=== PATIENT | male | born 1995 | race African-American/Black ===

== ENCOUNTER 2022-08-09 16:45 | Emergency (ER) | payer OTHER ==
[~2022-08-09] VITALS: Ht 170.2 cm; Wt 87.0 kg
[2022-08-09] MEDS ORDERED: IBUPROFEN 600MG TABLET PO ONE (23:00)
[2022-08-09] MEDS ORDERED: TETANUS, DIPHTHERIA, PERTUSSIS VAC/PF 0.5ML (>10YR OLD) IM ONE (23:00)
[2022-08-09] MEDS ORDERED: BO1 TP (23:23)
[2022-08-09] MEDS ORDERED: IBUP-2029 MT (23:23)
[2022-08-09] MEDS ORDERED: BACITRACIN ZINC OINT UDPKT TOP ONE (23:30)
[2022-08-09 23:55] VITALS: BP 144/80
== END 2022-08-09 23:55 | disposition home or self-care (01) ==
LOC: ER 16:45
DX: S60.031A Contusion of right middle finger without damage to nail, initial encounter (principal); X58.XXXA Exposure to other specified factors, initial encounter; Y93.89 Activity, other specified; Y92.89 Other specified places as the place of occurrence of the external cause; Y99.8 Other external cause status
CPT/HCPCS: 29130; 73140; 90471; 90715; 99283; Z7610

== ENCOUNTER 2022-08-19 16:35 | Emergency (ER) | payer OTHER ==
[~2022-08-19] VITALS: Ht 170.2 cm; Wt 87.0 kg
[~2022-08-19 16:35] MED LIST: BO1 TP; IBUP-2029 MT
[2022-08-19 16:41] VITALS: BP 124/82
== END 2022-08-19 18:29 | disposition home or self-care (01) ==
LOC: ER 16:35
DX: S60.031A Contusion of right middle finger without damage to nail, initial encounter (principal); M79.89 Other specified soft tissue disorders; X58.XXXA Exposure to other specified factors, initial encounter; Y93.89 Activity, other specified; Y92.89 Other specified places as the place of occurrence of the external cause; Y99.8 Other external cause status
CPT/HCPCS: 99281

== ENCOUNTER 2023-09-11 22:28 | Emergency (ER) | payer MEDICAID, OTHER ==
[~2023-09-11] VITALS: Ht 170.2 cm; Wt 112.7 kg
[2023-09-11 23:49] VITALS: BP 132/81; PULSE 98; RESP 16; TEMP 98; O2SAT 97
[2023-09-12] MEDS: LIDOCAINE HCL/PF 1% 10 MG/ML 5ML VIAL INFIL ONE (02:00)
[2023-09-12] MEDS ORDERED: IBUP-2030 MT (02:27)
[2023-09-12] MEDS ORDERED: MUPI15CR11 TP (02:27)
[2023-09-12] MEDS ORDERED: CEPH500T MT (02:27)
== END 2023-09-12 03:35 | disposition home or self-care (01) ==
LOC: ER 22:28
DX: L03.032 Cellulitis of left toe (principal)
CPT/HCPCS: 11730; 99284